=== PATIENT | female | born 1955 | race Caucasian/White ===

== ENCOUNTER → 2017-03-23 | Outpatient (CLI) | payer BC ==
[~2017-03-23] MED LIST: FLEXERIL10 MG PO; HYDROCHLOROTHIA25 MG PO; HYDROCODON-ACE1 EAC1 PO; LEXAPRO20 MG PO; LORAZEPAM0.5 MG PO; VALTURNA 300-321 TAB PO
--- NOTE | ~2017-03-23 | MR113 ---
[facility] A Service of [facility] RADIOLOGY TEXT RESULTS PATIENT: MARCUS SANDOVAL LOCATION: [facility] : 59 UNIT #: [id number] AGE: [address]: Isidro Madrigal MD SEX: F ORDER DR: [id number] [address] [address] [id number] MR#: [id number] Acc #: [id number] NAME: MARCUS SANDOVAL : 1955 SEX: F STUDY DATE/TIME: 03/23/2017 11:39 UNIT: [facility] ROOM: STUDY DESCRIPTION: MR Lumbar Wo Contrast Attending Physician: Isidro Madrigal M.D. Referring Physician: Isidro Madrigal M.D. Ordering Physician: Isidro Madrigal M.D. Primary Care Physician: Isidro Madrigal M.D. MRI CENTER REPORT This report is preliminary unless electronic signature is present. EXAM Lumbar spine MRI HISTORY Chronic back pain for the past several years progressively worsening over the past 3 years. Pain is worse toward the right side. Comparison Examination: 10/21/2013 TECHNIQUE Multiplanar imaging lumbar spine was performed with short and long TR. FINDINGS Alignment is satisfactory. Degenerative changes are seen all lumbar discs with disc desiccation noted and disc space narrowing. There is mild disc bulging seen at L4-5 and L5-S1. Since previous examination 2013 degenerative changes at the L5-S1 level have progressed but the degree of disc bulging is unchanged. Posterior facet degenerative changes at L5-S1 are advanced and also show worsening since the previous exam. Foraminal narrowing is mild bilaterally at the L5-S1 level and the other lumbar foramina are widely patent. No marrow edema is seen. No destructive bone lesions are noted. The conus is normal. No paraspinous masses are seen. IMPRESSION Multilevel degenerative disc and facet disease. The upper 4 lumbar discs and facets show no significant change from 2014. There has been progression of degenerative changes both of the disc and facets at the L5-S1 level. This causes only mild central stenosis and mild bilateral foraminal narrowing. No acute abnormality is noted. Dictated by... [facility] A Service of [facility] RADIOLOGY TEXT RESULTS PATIENT: MARCUS SANDOVAL LOCATION: [facility] : 59 UNIT #: [id number] AGE: [address]: Isidro Madrigal MD SEX: F ORDER DR: Americo Wiggins M.D. THIS IS AN ELECTRONICALLY VERIFIED REPORT Americo Wiggins M.D. at 03/24/2017 4:52 PM FIFI/nimco TD: 03/24/2017 14:44 JOB #: [id number] MRI CENTER REPORT Page 1 of 1
== END | disposition home or self-care (01) ==
LOC: SMRI 11:04
DX: M51.16 Intervertebral disc disorders with radiculopathy, lumbar region (principal); M48.06 Spinal stenosis, lumbar region; M47.27 Other spondylosis with radiculopathy, lumbosacral region
CPT/HCPCS: 72148